=== PATIENT | male | born 1995 | race Caucasian/White ===

== ENCOUNTER 2017-10-20 22:25 | Emergency (ER) | payer SELFPAY ==
[~2017-10-20] VITALS: Ht 177.8 cm; Wt 70.5 kg
[2017-10-21] MEDS ORDERED: INDOCIN50 MG PO (00:12)
[2017-10-21] MEDS ORDERED: ULTRACET1 TABLET PO (00:12)
[2017-10-21] MEDS ORDERED: LIDOCAINE20 MG/1 M5 PO (00:12)
[2017-10-21] MEDS ORDERED: PREDNISONE20 MG PO (00:12)
[2017-10-21 00:15] VITALS: BP 144/89
== END 2017-10-21 00:20 | disposition home or self-care (01) ==
LOC: EME 22:25
DX: K02.9 Dental caries, unspecified (principal); K04.7 Periapical abscess without sinus; G89.29 Other chronic pain; F17.200 Nicotine dependence, unspecified, uncomplicated
CPT/HCPCS: 99281; 99283; J7512